=== PATIENT | female | born 1985 | race Caucasian/White ===

== ENCOUNTER 2017-03-18 13:21 | Emergency (ER) | payer OTHER ==
[~2017-03-18] VITALS: Ht 154.9 cm; Wt 46.3 kg
[~2017-03-18 13:21] MED LIST: AMOXICILLIN PO; BACTRIM DS TABL1 TA1 PO; IBUPROFEN PO; LORTAB ELIXIR15 ML PO; NO MEDICATIONS; PREDNISONE5 M1 DOB; PREMARIN PO; PYRIDIUM PO; TRANSDERM-1 PATCH .7 TOP; [UNRECOGNIZED DRUG - OTHER]
== END 2017-03-18 14:11 | disposition home or self-care (01) ==
LOC: SED 13:21
DX: H66.91 Otitis media, unspecified, right ear (principal); F17.200 Nicotine dependence, unspecified, uncomplicated; E11.9 Type 2 diabetes mellitus without complications; Z88.2 Allergy status to sulfonamides; Z88.1 Allergy status to other antibiotic agents; Z88.8 Allergy status to other drugs, medicaments and biological substances
CPT/HCPCS: 99283